=== PATIENT | female | born 1995 | race Caucasian/White ===

== ENCOUNTER → 2021-05-13 07:52 | Outpatient (CLI) | payer OTHER, SELFPAY ==
[2021-05-13 08:45] LABS: COVID19 -Nasal RAPID Negative (Negative)
== END ==
PROVIDERS: Visit Provider Physician Assistant
DX: Z20.822 Contact with and (suspected) exposure to COVID-19 (principal)
CPT/HCPCS: 87635

== ENCOUNTER → 2023-05-23 14:45 | Outpatient (CLI) | payer OTHER, SELFPAY | PROVIDERS: PCP Family Medicine; Visit Provider Obstetrics & Gynecology | DX: Z34.01 Encounter for supervision of normal first pregnancy, first trimester (principal) | CPT/HCPCS: 87086 ==

== ENCOUNTER → 2023-05-25 14:48 | Outpatient (CLI) | payer OTHER, SELFPAY ==
[2023-05-25 15:12] LABS: Specimen Label NATERA
[2023-05-25 15:46] LABS: Add Manual Diff / Slide Review NO; Basophils Absolute Auto 0 /uL (0-100); Basophils Percent Auto 0.4 % (0-2); Eosinophils Absolute Auto 400 /uL (0-450); Eosinophils Percent Auto 3.7 % (2-4); Hematocrit 36.7 % (36-46); Hemoglobin 12.4 g/dL (12.0-16.0); Lymphocytes Absolute Auto 2900 /uL (1100-4500); Lymphocytes Percent Auto 24.7 % (25-40); Mean Corpuscular HGB Conc 33.8 % (30-36); Mean Corpuscular Hemoglobin 29.8 PG (26-34); Mean Corpuscular Volume 88.1 fL (80-100); Monocytes Absolute Auto 500 /uL (0-900); Monocytes Percent Auto 4.3 % (3-14); Neutrophils Absolute Auto 7900 /uL (1500-7000); Neutrophils Percent Auto 66.9 % (50-75); Platelet Count 327 X10^3/uL (150-400); Red Blood Cell Count 4.17 X10^6/uL (4.0-5.2); Red Cell Distribution Width 13.2 % (11.6-14.8); White Blood Cell Count 11.7 X10^3/uL (4.5-11.0)
[2023-05-25 17:27] LABS: Hepatitis B Surface Antigen NEGATIVE s/c (NEGATIVE); Rubella Antibody IgG > 350.0 IU/mL (>15)
[2023-05-25 17:41] LABS: HIV 1 & 2 Ab/Ag 4th Gen Combo NEGATIVE (NEGATIVE); Hep C Virus Ab w/Reflex Quant NEGATIVE s/c (NEGATIVE)
[2023-05-25 17:58] LABS: Urine N gonorrhoeae NOT DETECTED
[2023-05-25 18:05] LABS: Urine Chlamydia NOT DETECTED
[2023-05-26 09:09] LABS: Varicella IgG Antibody 466 index (Immune >165)
[2023-05-27 00:38] LABS: RPR Screen Non Reactive (Non Reactive)
== END ==
PROVIDERS: PCP Family Medicine; Referring Provider Obstetrics & Gynecology; Visit Provider Obstetrics & Gynecology
DX: Z34.01 Encounter for supervision of normal first pregnancy, first trimester (principal); Z34.81 Encounter for supervision of other normal pregnancy, first trimester
CPT/HCPCS: 36415; 80055; 86787; 86803; 86850; 86900; 86901; 87389; 87491; 87591

== ENCOUNTER → 2023-07-18 16:30 | Outpatient (CLI) | payer OTHER, SELFPAY ==
[2023-07-20 21:27] LABS: Gest Age on Col Date 22.3 weeks (.); Insulin Dep Diabetes No (.); OSBR Risk 1IN 10000 (.); Results Report (.); Test Results *Screen Negative* (.)
[2023-07-21 12:52] LABS: PDF SCANNED
== END ==
PROVIDERS: PCP Family Medicine; Referring Provider Obstetrics & Gynecology; Visit Provider Obstetrics & Gynecology
DX: Z34.90 Encounter for supervision of normal pregnancy, unspecified, unspecified trimester (principal); Z3A.17 17 weeks gestation of pregnancy
CPT/HCPCS: 36415; 82105

== ENCOUNTER → 2023-08-09 16:22 | Outpatient (CLI) | payer OTHER, SELFPAY ==
--- NOTE | 2023-08-09 16:25 | DI.US.S_ITS ---
PROCEDURE: US OB >= 14 WEEKS FETUS INDICATIONS: ANATOMY SCAN OUTSIDE/PRIOR DATING DATA: Last menstrual period (LMP): 03/16/2023. LMP-based estimated date of delivery (CHRISTIAN): 12/21/2023. First dating scan (date and location): 05/23/2023. Estimated date of delivery (CHRISTIAN) from first dating scan: 12/26/2023. The calculations are made using the ultrasound CHRISTIAN of 12/21/2023. TECHNIQUE: Real-time scanning was performed of the fetus, with image documentation and biometric measurements. COMPARISON: None. FINDINGS: General: A single living intrauterine gestation is present. Presentation: Vertex. Placenta: Placental position is anterior , without previa. Amniotic fluid index: 11.3 cm, normal range is 5-24 cm. Single deepest vertical pocket is 4.2 cm. heart rate: 149 beats per minute. Maternal cervical canal: 4.4 cm long. Normal lower limit is 2.5 cm. biometrics: Biparietal diameter: 5.1 cm. 21 weeks 2 days Head circumference: 18.6 cm. 20 weeks 6 days Abdominal circumference: 15.6 cm. 20 weeks 5 days Femur length: 3.4 cm. 20 weeks 5 days Clinically estimated gestational age: 20 weeks 6 days Composite gestational age from present scan: 21 weeks 0 days Estimated weight and percentile: 379 g. 42 percentile Anatomic survey: Neuro: Ventricles are non-dilated at less than 10 mm. Cisterna magna is normal at 3-11 mm. Cerebellum is normal in size and morphology. Nuchal skin fold: Normal at less than 6 mm between 14-21 weeks gestational age. Face: Nose and lips, facial profile are normal. Spine: No evidence for spina bifida. Heart: 4-chambered heart is present, with normal ventricular outflow tracts. Diaphragm: Diaphragm is intact. Stomach: Left-sided stomach is present. Kidneys: No hydronephrosis. Normal is less than 5 mm in 2nd trimester, less than 7 mm in 3rd trimester. Cord: 3-vessel cord has orthotopic insertion. Bladder: Normal in size. Extremities: All 4 extremities identified. IMPRESSION: 1. Single living intrauterine with congruent size/dates. 2. Normal anatomy. We strive to produce accurate, complete, and clear reports of imaging services. To assist us in improving patient care, this report was composed using standard report templates and voice recognition software. Therefore, it may contain abnormal punctuation, insertions and/or omissions. Occasional wrong-word or sound-alike substitutions may occur. Though we review the report and make efforts to correct it, we do recommend that the report be read carefully in proper context to recognize any text inaccuracies. Dictated by: Hansel Jeong M.D. on 08/10/2023 at 8:47 Approved by: Hansel Jeong M.D. on 08/10/2023 at 8:50
== END ==
PROVIDERS: PCP Family Medicine; Referring Provider Obstetrics & Gynecology; Visit Provider Obstetrics & Gynecology
DX: Z34.92 Encounter for supervision of normal pregnancy, unspecified, second trimester (principal); Z3A.21 21 weeks gestation of pregnancy
CPT/HCPCS: 76811

== ENCOUNTER → 2023-09-12 15:44 | Outpatient (CLI) | payer OTHER, SELFPAY ==
[2023-09-12 17:22] LABS: Hematocrit 34.4 % (36-46); Hemoglobin 11.9 g/dL (12.0-16.0)
[2023-09-12 17:48] LABS: GTT (PREG) 1 Hour PP 50gm Dose 135 mg/dL (76-139)
== END ==
PROVIDERS: PCP Family Medicine; Referring Provider Obstetrics & Gynecology; Visit Provider Obstetrics & Gynecology
DX: Z34.02 Encounter for supervision of normal first pregnancy, second trimester (principal); Z3A.25 25 weeks gestation of pregnancy
CPT/HCPCS: 36415; 82950; 85014; 85018

== ENCOUNTER → 2023-11-24 11:13 | Outpatient (CLI) | payer OTHER, SELFPAY ==
[2023-11-25 14:20] LABS: Strep Grp B PCR NEG for Grp B Strep
== END ==
PROVIDERS: PCP Family Medicine; Visit Provider Obstetrics & Gynecology
DX: Z34.03 Encounter for supervision of normal first pregnancy, third trimester (principal); Z3A.36 36 weeks gestation of pregnancy
CPT/HCPCS: 87653

== ENCOUNTER 2023-12-18 21:17 | Inpatient (IN) | payer OTHER, SELFPAY ==
[2023-12-18] MEDS: LACTATED RINGERS 500 ML 1000 ML IV (22:40)
[2023-12-18] MEDS: miSOPROStoL 25 MCG TABLET 50 MCG PO (22:53)
[2023-12-18 23:06] LABS: Add Manual Diff / Slide Review NO; Basophils Absolute Auto 100 /uL (0-100); Basophils Percent Auto 0.4 % (0-2); Eosinophils Absolute Auto 700 /uL (0-450); Eosinophils Percent Auto 5.2 % (2-4); Hematocrit 35.6 % (36-46); Hemoglobin 11.9 g/dL (12.0-16.0); Lymphocytes Absolute Auto 3400 /uL (1100-4500); Lymphocytes Percent Auto 25.4 % (25-40); Mean Corpuscular HGB Conc 33.3 % (30-36); Monocytes Absolute Auto 800 /uL (0-900); Monocytes Percent Auto 5.9 % (3-14); Neutrophils Absolute Auto 8300 /uL (1500-7000); Neutrophils Percent Auto 63.1 % (50-75); Platelet Count 290 X10^3/uL (150-400); Red Blood Cell Count 4.24 X10^6/uL (4.0-5.2); Red Cell Distribution Width 13.9 % (11.6-14.8); White Blood Cell Count 13.3 X10^3/uL (4.5-11.0)
[2023-12-18] MEDS: ZOLPIDEM 5 MG TABLET PO (23:34)
[2023-12-18 23:38] VITALS: BP 134/79
--- NOTE | 2023-12-19 04:47 | PM.AN.REGBLK ---
[facility] <Isauro Connelly MD - Last Filed: 12/19/23 14:49> Pre-procedure Procedure: Continuous Lumbar Epidural for L&D Attending OB provider: Viridiana Longoria PMH/ROS narrative: 28yo female with significant history of well controlled asthma. Hx: No personal or family history of anesthesia problems. PSH/Anesthesia history narrative: [place] teeth extraction ASA Class: II Labs: Hct 35.6 % (36-46) L 12/18/23 22:40 Plt Count 290 X10^3/uL (150-400) 12/18/23 22:40 Medications: Current Medications Generic Name Dose Route Start Last Admin Trade Name Freq PRN Reason Stop Dose Admin Calcium Carbonate 1,000 mg 12/18/23 22:02 Calcium Carbonate 500 Mg Tab PO Q4HR PRN Dyspepsia Carboprost Tromethamine 250 mcg 12/18/23 22:02 Carboprost 250 Mcg/Ml Ampul IM Q90M PRN Bleeding Diphenhydramine HCl 25 mg 12/19/23 04:41 Diphenhydramine 50 Mg/Ml Vial IV Q10M PRN Pruritis Ephedrine Sulfate 5 mg 12/19/23 04:41 Ephedrine 50 Mg/Ml Vial IV Q5M PRN Blood pressure decrease more than 20% of baseline. Fentanyl 50 mcg 12/18/23 22:02 Fentanyl 100 Mcg/2 Ml Inj IV Q1H PRN Pain, Moderate (4-6) Lactated Ringer's 1,000 mls @ 100 mls/hr 12/18/23 22:15 Lactated Ringers IV CONT RICARDO Oxytocin/Lactated Ringer's 30 unit in 500 mls @ 200 mls/hr 12/18/23 22:02 Oxytocin Premix IV CONT PRN Bleeding Protocol Tranexamic Acid 1,000 mg/ 100 mls @ 200 mls/hr 12/18/23 22:02 Sodium Chloride IV NOW PRN Bleeding FENT 2MCG/ML BUPIV 0.125% EPI 200 mcg in 100 mls @ 6 mls/hr 12/19/23 04:45 Fentanyl/Bupiv/Ns 2mcg/Ml - 0.125% EPIDURAL CONT RICARDO Lidocaine HCl 20 ml 12/18/23 22:02 Lidocaine 1% 20 Ml INJ INTRA-OP PRN Post Delivery Methylergonovine Maleate 0.2 mg 12/18/23 22:02 Methylergonovine 0.2 Mg Tablet PO Q6HR PRN Heavy Bleeding Methylergonovine Maleate 0.2 mg 12/18/23 22:02 Methylergonovine 0.2 Mg/Ml Vial IM NOW PRN Bleeding Misoprostol 800 mcg 12/18/23 22:02 Misoprostol 200 Mcg Tablet HI NOW PRN Bleeding Misoprostol 400 mcg 12/18/23 22:02 Misoprostol 200 Mcg Tablet SL NOW PRN Bleeding Misoprostol 50 mcg 12/18/23 22:15 12/18/23 22:53 Misoprostol 25 Mcg Tablet PO 50 mcg Q4H RICARDO Administration Nalbuphine HCl 2.5 mg 12/19/23 04:41 Nalbuphine 20 Mg/Ml Ampul IV Q10M PRN Pruritis Naloxone HCl 0.2 mg 12/18/23 22:02 Naloxone 0.4 Mg/Ml Vial IV Q2MIN PRN Opiate Reversal Ondansetron HCl 4 mg 12/18/23 22:02 Ondansetron 4 Mg/2 Ml Inj IV Q4HR PRN Nausea And Vomiting Oxytocin 10 unit 12/18/23 22:02 Oxytocin 10 Unit/Ml Vial IM NOW PRN Bleeding Zolpidem Tartrate 5 mg 12/18/23 23:26 12/18/23 23:34 Zolpidem 5 Mg Tablet PO 5 mg BEDTIME PRN Administration Sleep Allergies: Allergies Allergy/AdvReac Type Severity Reaction Status Date / Time No Known Drug Allergies Allergy Verified 12/15/23 10:49 Procedure Insertion date: 12/19/23 Insertion time: 04:14 Prep/Local: betadine x3 and 1% lidocaine Interspace: L3-L4 Patient position: sitting Needle: 18 gauge [place] Loss of resistance with: saline DENI at (cm): 6 Catheter placed at SKIN (cm): 14 Catheter in SPACE (cm): 8 Insertion: No CSF, No Blood, No Paresthesia with insertion, No Paresthesia with injection and No Test dose reaction Initial Medications TEST DOSE time: 04:16 TEST DOSE: 1.5% lidocaine with epinephrine 1:200k (mL): 3 BOLUS DOSE time: 04:17 BOLUS DOSE (mL): 5 BOLUS DOSE med: other (2% Lidocaine) Infusion INFUSION: 0.125% bupivacaine and with fentanyl 2 mcg/mL Initial rate (mL/hr): 6 Post-procedure Anesthesia date START: 12/19/23 Anesthesia time START: 04:04 <Prabha Johnson, DO - Last Filed: 12/19/23 12:07> Infusion Subsequent interventions: 07:49 Called to bolus. Pt is complete, able to move BLE. Gave 5 ml of 2% lido PF via epidural. Pt is cheerful and appears comfortable. Alyssa Post-procedure Anesthesia date END: 12/19/23 Anesthesia time END: 09:16 Post-procedure Anesthesia Assessment: Yes CV function: HR/BP stable, Yes Resp function: RR/sat/airway adequate, Yes Post-op hydration adequate, Yes Pain control adequate, Yes Nausea & vomiting absent, Yes Temperature > 36 C, Yes Mental status appropriate and No Anesthesia complications
--- NOTE | 2023-12-19 07:00 | PM.OBHP.IH.1 ---
OB HPI Date/Time Date of admission: 12/19/23 Date Patient Seen: 12/19/23 Time Patient Seen: 07:00 History of Present Condition Chief complaint: water broke/labor CHRISTIAN Calculator Estimated Delivery Date Method Current WG Current Estimate 12/21/23 LMP (Certain) 39w 5d Other Estimates 12/26/23 Ultrasound #1 39w 0d Estimated Gestational Age (weeks): 39+5 : 1 Para: 0 Narrative: Patient presented last night with SROM with clear fluid care: good care, initiated at week # (9), number of visits (12) and pounds weight gain (54) Dating criteria OB: LMP confirmed by 1st trimester US Ultrasounds: normal 1st trimester US and normal mid trimester US Obstetrical complications: none Medical complications OB: none Preadmission Labs Last OB Lab Results: Blood Type A Positive 12/18/23 22:40 Antibody Screen Negative 12/18/23 22:40 Hematocrit 35.6 % (36-46) L 12/18/23 22:40 Hemoglobin 11.9 g/dL (12.0-16.0) L 12/18/23 22:40 Hepatitis B Surface Antigen Negative s/c (NEGATIVE) 05/25/23 14:58 Hepatitis C Antibody Negative s/c (NEGATIVE) 05/25/23 14:58 Rubella Antibody > 350.0 IU/mL (>15) 05/25/23 14:58 Varicella-Zoster IgG Antibody 466 index (Immune >165) 05/25/23 14:58 Glucose 1 Hour 135 mg/dL (76-139) 09/12/23 16:57 Group B Streptococcus (PCR) Neg for grp b strep 11/24/23 11:13 -: Chlamydia screen: negative, Gonorrhea screen: negative and Urine: negative (lactobacillus) -: PAP smear: Normal (2020) Genetic Screens: Cell-free DNA: Normal (normal male) and Alpha-fetoprotein: Normal External Labs -: Urine: negative (lactobacillus) Evaluation Evaluation Baseline heart rate: 135 Variability: Average (6-10) monitor accelerations: Present Monitor Decelerations: Early and Late (few) Contraction Frequency (minutes): 4 Uterine Contraction Intensity: Strong/Firm Status: Category ll Dilation (cm): 6 Effacement (%): 90 station: -1 Position of cervix: anterior Consistency: soft PFSH Medical History Exercise-induced asthma Seasonal allergies Surgical History [place] teeth extracted Family History Grandfather Colon cancer Diabetes mellitus Mother Hypertension Grandfather Aneurysm Coagulopathy Grandmother CVA (cerebral vascular accident) Grandmother Diabetes mellitus Sister Preeclampsia Social History marital status: number of children: 0 household members: spouse and friend(s) lives independently: Yes caregiver/support person: No housing: house pets and animals: Yes (1) education level: college (bachelor's degree) occupational status: employed (works from home in [employer]) current occupational exposures/hazards: No special marzena needs: No travel history: recent (domestic only) seatbelt use: always helmet use: Yes water heater temp set < 120 deg: Yes working smoke detector in home: Yes fire extinguisher in home: Yes carbon monox detector in home: Yes firearms in home: Yes firearms unloaded and locked: Yes do you feel safe at home: Yes Smoking Status: Never smoker second hand exposure: No alcohol intake: former (3/week when not ) substance use type: does not use during the past year weight has: decreased > 10 lbs well-balanced diet: daily or most days daily servings fruits/ve-4 caffeine: No Type(s) of exercise: walking, weight lifting and running frequency: daily Meds Home Medications and Allergies Home Medications Medication Instructions Recorded Confirmed Type vitamin-ferrous sulfate 1 tab PO 1XD 05/16/23 12/18/23 History 27 mg iron-folic acid 0.8 mg tablet albuterol sulfate 90 mcg/actuation 2 puff inhalation Q6H PRN 06/24/23 12/18/23 Rx aerosol inhaler shortness of breath or wheezing #6.7 grams inhalational spacing device #1 ea 06/24/23 12/18/23 Rx (Aerochamber MV spacer) fluticasone propionate 45 2 puff inhalation BID #12 grams 11/24/23 12/18/23 Rx mcg-salmeterol 21 mcg/actuation HFA inhaler (Advair HFA) Allergies Allergy/AdvReac Type Severity Reaction Status Date / Time No Known Drug Allergies Allergy Verified 12/15/23 10:49 OB Exam Narrative Exam Narrative: Generally: Patient lying on her left side, comfortable with epidural Lungs: Clear to auscultation bilaterally Cardiovascular: Regular rate and rhythm Fundal height: 40 cm Estimated weight: 7-1/2 lb Extremities: Trace edema Objective Labs 12/18/23 22:40 Labs: Laboratory Results - last 24 hr 12/18/23 22:40 WBC 13.3 H RBC 4.24 Hgb 11.9 L Hct 35.6 L MCV 84.0 MCH 28.0 MCHC 33.3 RDW 13.9 Plt Count 290 Neut % (Auto) 63.1 Lymph % (Auto) 25.4 Hitchcock % (Auto) 5.9 Eos % (Auto) 5.2 H Baso % (Auto) 0.4 Neut # (Auto) 8300 H Lymph # (Auto) 3400 [place]cock # (Auto) 800 Eos # (Auto) 700 H Baso # (Auto) 100 Blood Type A Positive Antibody Screen Negative Assessment and Plan Assessment and Plan Assessment and Plan narrative: Assessment: 28-year-old 1 para 0 at 39-,5/7 weeks gestation in active labor Status post spontaneous rupture of membranes 10 hours ago Group B strep negative Comfortable with epidural Plan: Expected management to spontaneous vaginal delivery We will hold off starting Pitocin until [id number] variability picks up Time Spent with Patient Total time spent with greater than 50% in coordination of care (as documented) at patient's floor/unit and/or counseling patient:: 15-24 minutes
[2023-12-19] MEDS: LACTATED RINGERS 1,000 ML 100 ML IV ×2 (07:13→07:23)
[2023-12-19] MEDS: OXYTOCIN PREMIX 30 UNIT/500 ML PLAST..BAG 200 UNIT IV (07:15)
--- NOTE | 2023-12-19 07:46 | PM.OBPNLAB ---
Date/Time Date Patient Seen: 12/19/23 Time Patient Seen: 07:46 Pain Control Pain control: epidural (Starting to feel the contractions) Pelvic Exam Dilation (cm): 10 Effacement (%): 100 station: -1 Amniotic membrane status: Ruptured Contractions Monitor mode: Palpation Pitocin rate (mU/min): 1 Contraction frequency (min): 3 Contraction duration (min): 1 Contraction intensity: Strong/Firm Status status: Category l Heart Rate Baseline: 125 Monitor Accelerations: Present Monitor Decelerations: Early Monitor Variability: Moderate Assessment and Plan Assessment: active labor Comments: Anesthesia to bolus epidural High Fowlers Begin pushing
--- NOTE | 2023-12-19 09:55 | P.PCNOB_ITS ---
Events: Labor Augmentation Labor & Delivery Delivery date: 12/19/23 Cervical ripening method: per misoprostal protocol Delivery augmentation: pitocin Delivery monitor: external FHT and external uterine Route of delivery: Episiotomy description: None L&D Laceration Description: Perineal - 2nd Degree and Vaginal - 2nd Degree Delivery repair: vicryl and chromic Quantitative Blood Loss: 150 Anesthesia Type: Epidural Complications: None Narrative: Patient complete and pushed x 32 min. At 0916 a.m., a live male delivered spontaneously over an intact perineum. A nuchal cord x 1 was reduced on the perineum. The remainder of the body delivered without difficulty and was placed on mom's abdomen. Pitocin was given in the IVF's. The cord was double- clamped and cut after the cord stopped pulsing. Cord bloods were obtained. The placenta delivered intact with a three-vessel cord at 9:23 a.m.. Fundus was massaged to firm. A second-degree perineal/vaginal laceration was visualized and repaired in the usual fashion. Hemostasis was achieved. Apgars 9 at 1 minute and 9 at 5 minutes. . Epidural analgesia. Mom and stable to recovery. Counts correct with 5 laps, 10 4x4s, 6 instruments and a cup. [place] Baby 1: Infant gender: Male Presentation: vertex Position: Right Occiput Anterior Cord Vessel Description: 3 Vessels, Nuchal Cord, Loose, Reduced and Clamped/Cut (after cord stopped pulsing) score (1 min): 9 score (5 min): 9 weight: 6 lb 15 oz Plan for aftercare: Routine care
[2023-12-19] MEDS: IBUPROFEN 600 MG TABLET PO ×2 (11:45→18:23)
[2023-12-19] MEDS: ACETAMINOPHEN 325 MG TABLET 650 MG PO ×2 (11:45→18:23)
[2023-12-19] MEDS: LANOLIN OINT 7 GM 1 APPLIC TOP (18:22)
[2023-12-20] MEDS: ACETAMINOPHEN 325 MG TABLET 650 MG PO ×2 (00:38→07:31)
[2023-12-20] MEDS: IBUPROFEN 600 MG TABLET PO ×2 (00:38→07:30)
[2023-12-20 06:48] LABS: Hematocrit 31.4 % (36-46); Hemoglobin 10.5 g/dL (12.0-16.0)
== END 2023-12-20 09:25 | disposition home or self-care (01) | DRG 807 ==
PROVIDERS: Admitting Provider Obstetrics & Gynecology; PCP Family Medicine; Referring Provider Obstetrics & Gynecology; Visit Provider Obstetrics & Gynecology
DX: O70.1 Second degree perineal laceration during delivery (principal); Z37.0 Single live birth; Z3A.39 39 weeks gestation of pregnancy
CPT/HCPCS: 36415; 59050; 59200; 59400; 84112; 85014; 85018; 85025; 86850; 86900; 86901; G0379; J2590